=== PATIENT | female | born 1965 | race Caucasian/White ===

== ENCOUNTER 2016-03-14 19:20 | Emergency (ER) | payer BC ==
[~2016-03-14] VITALS: Ht 162.6 cm; Wt 82.0 kg
[2016-03-14] MEDS ORDERED: BACT800T5 PO (19:38)
[2016-03-14] MEDS ORDERED: CEPH-460 PO (19:38)
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
[2016-03-14] MEDS ORDERED: TETANUS/DIPHTHERIA TOXOID ADULT 0.5 ML VIAL IM ONE (19:45)
[2016-03-14 19:54] VITALS: BP 127/78; PULSE 86; RESP 18; TEMP 98.7; O2SAT 98
== END 2016-03-14 20:18 | disposition home or self-care (01) ==
LOC: PHEFT 19:20
DX: S91.332A Puncture wound without foreign body, left foot, initial encounter (principal); L03.116 Cellulitis of left lower limb; Z23 Encounter for immunization
CPT/HCPCS: 90471; 90714